=== PATIENT | female | born 1975 | race Hispanic/Latino ===

== ENCOUNTER 2019-02-28 06:40 | Day surgery (SDC) | payer BC ==
[2019-02-25 10:19] VITALS: BP 95/77
[2019-02-25 10:24] LABS: BASOPHILS % (AUTO) 0.8 % (0.0-5.0); EOSINOPHILS % (AUTO) 2.1 % (0.0-8.0); LYMPHOCYTES % (AUTO) 26.4 % (21.0-51.0); MEAN CORPUSCULAR HEMOGLOBIN 33.2 pg (27.0-33.0); MEAN CORPUSCULAR HGB CONC 34.2 g/dL (32.0-36.0); MEAN CORPUSCULAR VOLUME 97.1 fL (79-99); MONOCYTES % (AUTO) 6.9 % (3.0-13.0); NEUTROPHILS % (AUTO) 63.8 % (40.0-77.0); NUCLEATED RED BLOOD CELLS 0.1 % (0.0-0.19); PLATELET COUNT (AUTO) 290 K/uL (130-400); RED BLOOD CELL COUNT(AUTO) 4.22 MIL/uL (4.00-5.50); RED CELL DISTRIBUTION WIDTH 13.5 % (11.0-15.5); WHITE BLOOD COUNT (AUTO) 6.1 K/uL (4.8-10.8)
[~2019-02-28] VITALS: Ht 157.5 cm; Wt 60.3 kg
[2019-02-28] VITALS (17 sets, daily range): BP systolic 95–112; BP diastolic 45–60
[2019-02-28] MEDS ORDERED: LIDOCAINE PF 2% 5ML ABBOJECT ONE (07:14)
[2019-02-28] MEDS ORDERED: DEXAMETHASONE SOD PHOSPHATE 10MG/ML 1ML VIAL ONE ×2 (07:14→07:16)
[2019-02-28] MEDS ORDERED: LACTATED RINGERS 1000ML 1,000 ML IV ONE (07:14)
[2019-02-28] MEDS ORDERED: ONDANSETRON HCL 4 MG/2 ML VIAL ONE (07:15)
[2019-02-28] MEDS ORDERED: FENTANYL CITRATE PF 50 MCG/1 ML 2ML VIAL ONE (07:15)
[2019-02-28] MEDS ORDERED: MIDAZOLAM HCL 1 MG/ML 2ML VIAL ONE (07:15)
[2019-02-28] MEDS ORDERED: PROPOFOL 10 MG/ML 20ML VIAL IV ONE (07:15)
[2019-02-28] MEDS ORDERED: STRONG IODINE SOLUTION 30ML BOTTLE ONE (07:18)
[2019-02-28] MEDS ORDERED: VASOPRESSIN 20 UNITS/ML 1ML VIAL ONE (07:18)
[2019-02-28] MEDS ORDERED: SODIUM CHLORIDE 0.9% 10 ML VIAL ONE (07:19)
[2019-02-28] MEDS ORDERED: EPHEDRINE SULFATE 50 MG/ML AMPULE ONE (08:19)
[2019-02-28] MEDS ORDERED: KETOROLAC TROMETHAMINE 30MG/ML ONE (08:34)
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
--- NOTE | 2019-02-28 10:10 | NUR ---
dc dc instructions given to pt / pts mother with rx, instructed to f/u with dr. johnson, juli pad with no bleeding noted. pt denies any pain or discomforts. piv removed, catheter intact, site asymptomatic, pt waiting for her ride to go home
--- NOTE | 2019-02-28 10:25 | NUR ---
dc pt dc home via w[facility],no distress noted. accompanied by mom and sister
== END 2019-02-28 10:25 | disposition home or self-care (01) ==
LOC: DAH 06:40
PROVIDERS: ATTEND Specialist
DX: R87.612 Low grade squamous intraepithelial lesion on cytologic smear of cervix (LGSIL) (principal)
CPT/HCPCS: 36415; 57520; 84703; 85025; A4351; J1100; J1885; J2001; J2250; J2405; J2704; J3010; J3490 ×2; J7120